=== PATIENT | male | born 1980 | race Caucasian/White ===

== ENCOUNTER 2016-12-29 09:00 | Observation (INO) | payer MEDICARE ==
[~2016-12-29] VITALS: Ht 185.4 cm; Wt 86.3 kg
--- NOTE | ~2016-12-29 | DS ---
PATIENT'S NAME: BARBER CALLEJAS [facility] AGE: 36 Y [address] ROOM: [address] [address] LOCATION: G3 ADMIT DATE: 12/29/2016 Discharge Summary DISCHARGE DATE: 12/29/2016 FAMILY PHYSICIAN: PHYSICIAN, NO ATTENDING PHYSICIAN: Alexis Perez ADMISSION MAIN DIAGNOSES: Severe low back pain, query urinary incontinence, and left L5-S1 disk herniation. DISCHARGE MAIN DIAGNOSES: Severe low back pain, query urinary incontinence, and left L5-S1 disk herniation. PROCEDURES DURING ADMISSION: None. COMPLICATIONS DURING ADMISSION: None. MEDICATIONS ON DISCHARGE: 1. Resume all pre-admission medications. 2. Flexeril 10 mg p.o. every 8 hours p.r.n. 3. Oxycodone 5-10 mg p.o. every 4 hours p.r.n. DISCHARGE INSTRUCTIONS AND FOLLOWUP APPOINTMENTS: 1. With Dr. Munoz for management of lumbar degenerative joint disease. 2. No heavy lifting, no back twisting. 3. Continue physical therapy for lumbar degenerative joint disease. 4. Seek medical attention if having increasing back pain or any new neurologic symptoms. HOSPITAL COURSE: The patient is a 36-year-old male patient, who started complaining of severe lumbar spine spasms yesterday. He presented to the Emergency in [place]. In the Emergency, he had 2 episodes of urinary incontinence. Lumbar CT scan was done and that showed moderate L5-S1 degenerative joint disease, left L5-S1 disk herniation. The patient was transferred over for further investigations. During admission, he had lumbar spine MRI and that confirmed moderate L5-S1 degenerative joint disease and left L5-S1 disk herniation with mild compression on the thecal sac. The patient's spasms were better controlled. He was mobilizing without any assistance. His neurological examination was reassuring. He had no significant radicular pain on his left lower extremity. He was able to void without any complications. I reviewed the situation with the patient. I recommended conservative treatment to be done by Pain Service. I also recommended continuing physical therapy for lumbar degenerative joint disease. I reviewed all those instructions and recommendations with him. Based on my assessment, I think the patient can be discharged home today. PATIENT'S NAME: BARBER CALLEJAS [facility] AGE: 36 Y [address] ROOM: [address] [address] LOCATION: G3 ADMIT DATE: 12/29/2016 Discharge Summary DISCHARGE DATE: 12/29/2016 FAMILY PHYSICIAN: ELVIRA MORALES ATTENDING PHYSICIAN: Alexis Perez MD ROSALBA INFANTE/genaro /[id number] CC: Bettie Mcnally PA-C d: 12/30/16 0643 t: 12/31/16 1518, DISCHARGE SUMMARY
--- NOTE | ~2016-12-29 | HP ---
PATIENT'S NAME: BARBER CALLEJAS [facility] AGE: 36 Y [address] ROOM: [place] [address] LOCATION: [facility] ADMIT DATE: 12/29/2016 History & Physical DISCHARGE DATE: 12/29/2016 FAMILY PHYSICIAN: , NO ATTENDING PHYSICIAN: LES LAGUNA DATE OF SERVICE: 12/29/2016 DATE OF CONSULTATION: 12/29/2016 ADMISSION MAIN DIAGNOSES: Severe lumbar spine spasms, L5-S1 degenerative joint disease, and left L5-S1 disk herniation. HISTORY OF PRESENT ILLNESS: The patient is a 36-year-old male patient, who was transferred from [facility] to our hospital with severe lumbar spine spasms. According to the patient, his spasms started last night at 08:30 p.m. He bent forward to flush the toilet, and immediately, he started complaining of severe lumbar spine spasms. He went to the Emergency in [place], and despite repeated doses of pain medications and muscle relaxants, he continued to have spasms. Lumbar spine CT scan was then obtained, and that showed the L5-S1 degenerative joint disease and left L5-S1 disk herniation. I was contacted and reviewed the images. I recommended transferring the patient over for further investigations. Just to mention, the patient has had urinary incontinence in [facility]. I met the patient on the [place]. He confirmed the history. He also reported a long history of lumbar spine pain. According to him, pain started four years ago and tends to flare up few times a year. The patient also reported discomfort in his left buttock. He denied numbness on his lower extremities and he denied pain on his lower extremities. He denied weakness on his lower extremities. He denied falls, unsteady gait, and history of urinary incontinence. According to him, he had the urinary incontinence because of the lumbar spine spasms. He denied neck pain, numbness on his hands, and weakness on his hands. He denied fever, chills. PAST MEDICAL AND SURGICAL HISTORY: Hypothyroidism. MEDICATIONS: Listed in the patient's chart. ALLERGIES: ZOFRAN AND PENICILLIN. REVIEW OF SYSTEMS: PATIENT'S NAME: BARBER CALLEJAS [facility] AGE: 36 Y [address] ROOM: [place] [address] LOCATION: [facility] ADMIT DATE: 12/29/2016 History & Physical DISCHARGE DATE: 12/29/2016 FAMILY PHYSICIAN: PHYSICIAN, NO ATTENDING PHYSICIAN: LES LAGUNA All points of review of systems were asked about. Pertinent positives were mentioned in HPI. FAMILY HISTORY: The patient has a sister, who is healthy. SOCIAL HISTORY: He is unemployed, on Disability. He is an active smoker, about half pack a day. He is a social alcohol drinker. PHYSICAL EXAMINATION: GENERAL: The patient was cooperative and pleasant. HEAD: Atraumatic. EYES: Scleral examination was normal bilaterally. MOUTH AND THROAT: No mucosal lesions. NECK: No tenderness to palpation. Neck range of motion was painless and full. No palpable masses. RESPIRATORY: He was not in any respiratory distress. CARDIOVASCULAR: He had strong pulses on the upper and lower extremities. SKIN: It showed multiple scars on his upper extremities. GAIT: It was steady. He was able to do the toe and heel walking with some difficulty. LYMPHATICS: No cervical lymphadenopathy. NEUROLOGICAL: He was alert and oriented. Cranial nerves examination was grossly normal. Motor and sensory examination on the upper and lower extremities was unremarkable. Straight leg raise was positive on the left leg. INVESTIGATIONS: 1. Lumbar spine CT scan done on December 29, 2016, which I personally reviewed. It showed evidence of [id number] L5-S1 degenerative joint disease associated with left L5-S1 disk herniation. The overall lumbar spine alignment is maintained. 2. Lumbar spine MRI done today, which I personally reviewed. It confirmed [id number] L5-S1 degenerative joint disease associated with left L5- S1 posterolateral disk herniation with mild compression on the thecal sac. IMPRESSION: A 36-year-old male patient, is presenting with moderate lumbar spine spasms. The patient is known to have L5-S1 degenerative joint disease and disk herniation. His spasms are better. He denies significant leg pain. He denies weakness and numbness on his legs. RECOMMENDATIONS AND PLAN: PATIENT'S NAME: DEBIMAGALIS BARBER M [facility] AGE: 36 Y [address] ROOM: [address] [address] LOCATION: [facility] ADMIT DATE: 12/29/2016 History & Physical DISCHARGE DATE: 12/29/2016 FAMILY PHYSICIAN: PHYSICIAN, NO ATTENDING PHYSICIAN: LES LAGUNA 1. Conservative treatment of L5-S1 degenerative joint disease and left L5-S1 disk herniation. 2. Pain Service involvement (Dr. Munoz) for conservative management of lumbar spine degenerative joint disease. 3. Physical therapy. 4. I recommended smoking cessation to the patient. I discussed the imaging findings with the patient. I clearly indicated that the CT scan and the MRI did show degenerative joint disease at L5-S1 level with left L5-S1 posterolateral disk herniation. I recommended conservative treatment for now. I then discussed my plan with him. He was agreeable with the plan. He asked appropriate questions and those were answered to his satisfaction. It was pleasure taking care of this patient, and thanks for having us involved. MD ROSALBA INFANTE/genaro /[id number] CC: Bettie Mcnally PA-C D: [id number] T: [id number] HISTORY & PHYSICAL
--- NOTE | 2016-12-29 10:42 | NUR ---
Pt is 36 y/o male admit for herniated disc for . Pt alert and oriented x3. Allergies to klonopin,PCN,zofran. Hx head trauma-sinus fx's,htn-not on meds,back pain,hx herniated disc,anxiety,depression,ADHD,PTSD,hypothyroid-not taking meds due to money issues,hx suicidal thoughts,self harm (cutting). Pt has scars visible on arms. Pleasant and cooperative. Resides at home alone. Pt states he doesn't recall doing anything strenuous or injuring his back recently. It just started giving him pain. Came via ambulance from [place].
[2016-12-29] MEDS ORDERED: GARLIC1 EAC1 PO (11:00)
[2016-12-29] MEDS ORDERED: THERA-VITE W/ B1 TAB PO (11:01)
[2016-12-29] MEDS ORDERED: VENLAFAXINE HC225 MG PO (11:02)
[2016-12-29] MEDS ORDERED: SEROQUEL XR400 MG PO (11:02)
[2016-12-29] MEDS ORDERED: LEVOTHROID (SY25 MCG PO (11:04)
[2016-12-29] MEDS ORDERED: VITAMIN D1000 UNIT PO (11:04)
[2016-12-29] MEDS ORDERED: SAW PALMETTO160 MG PO (11:05)
[2016-12-29] MEDS ORDERED: COENZYME Q10100 MG PO (11:05)
[2016-12-29] MEDS ORDERED: DEPO-TESTO200 MG/1 M IM (11:07)
--- NOTE | 2016-12-29 18:07 | NUR ---
Significant Event: Admit to room at 0940. Voids without difficulty. Oxycodone 5mg , Dilauidid 0.2mg IVP Flexeril 10mg for pain control. Ambulates with SBA and gatibelt. Denies nausea. Plans to dismiss home this afternoon. Follow up:
[2016-12-29] MEDS ORDERED: FLEXERIL10 MG PO (19:01)
[2016-12-29] MEDS ORDERED: ROXICODONE 5MG (5 MG PO (19:01)
--- NOTE | 2016-12-29 21:56 | NUR ---
UPON ASSESSMENT, PATIENT IS DRESSED AND READY TO LEAVE. DISCHARGE INSTRUCTIONS ARE BEING WORKED ON BY ANOTHER RN. PATIENT IS MADE AWARE OF THIS. IV SITE IS D/C'D. 1900 FLEXERIL IS ADMINISTERED. PATIENT RATES PAIN 6/10 TO HIS BACK. HE VERBALIZES THAT HE IS CONCERNED WITH BEING ABLE TO PAY FOR MEDICATIONS HIS PHARMACY IN [place] IS CLOSED. HE IS EDUCATED ON [facility] HERE IN [place]. HE VERBALIZES UNDERSTANDING. HE IS AMBULATING IN [place] WITHOUT DIFFICULTY AND HAS FAMILY MEMBERS PRESENT. DISCHARGE INSTRUCTIONS DISCUSSED WITH PATIENT. PRESCRIPTIONS PROVIDED. HE VERBALIZES UNDERSTANDING AND IS TAKEN VIA WHEELCHAIR OUT OF BUILDING ACCOMPANIED BY FAMILY MEMBERS.
== END 2016-12-29 20:30 | disposition disaster alternative care site (69) ==
LOC: EDSTATUS 09:00 → G3N 09:00
PROVIDERS: ADMIT Neurological Surgery
DX: M51.27 Other intervertebral disc displacement, lumbosacral region (principal); M47.817 Spondylosis without myelopathy or radiculopathy, lumbosacral region; E03.9 Hypothyroidism, unspecified; Z88.0 Allergy status to penicillin; Z88.8 Allergy status to other drugs, medicaments and biological substances
CPT/HCPCS: G0378; J1170